=== PATIENT | male | born 1980 | race Caucasian/White ===

== ENCOUNTER 2019-07-30 20:06 | Emergency (ER) | payer BC, OTHER ==
[2019-07-30] MEDS ORDERED: Sodium Chloride 0.9% 1,000 ML IV ONE ×2 (20:24→21:33)
--- NOTE | 2019-07-30 20:25 | EDM.PDOC ---
ED HPI GENERAL MEDICAL PROBLEM - General Stated Complaint: IRREGULAR HEARTBEAT Time Seen by Provider: 07/30/19 20:10 - History of Present Illness INITIAL COMMENTS - FREE TEXT/NARRATIVE: developed iregular HR about 45 min before persentation states h was eating an icecream when i started . has hd Afib about one year ago ( dehdration from excessive alcohol intake , responded to fluids denies ches pain , bu has fluttering in the chest ., no DUNCAN fever chillls, dry cough noted since onset of symptoms . pt is on Cartia for HTN - Related Data Allergies Allergy/AdvReac Type Severity Reaction Status Date / Time azithromycin [From Zithromax] Allergy Rash Verified 01/05/18 17:06 Home Meds: Home Meds dilTIAZem HCl [Diltiazem 24Hr Cd] 120 mg PO DAILY #14 cap.er.24h 01/05/18 [Rx] Diltiazem [Cardizem CD] 240 mg PO DAILY #30 cap.er 07/30/19 [Rx] Enoxaparin Sodium [Lovenox] 100 mg SQ Q12HR #10 ml 07/30/19 [Rx] Past Medical History Cardiovascular History: Reports: Hypertension ED ROS GENERAL - Review of Systems Review Of Systems: See Below Constitutional: Reports: No Symptoms. Denies: Weakness, Fatigue HEENT: Reports: No Symptoms Respiratory: Reports: No Symptoms Cardiovascular: Reports: Palpitations. Denies: Chest Pain, Lightheadedness, PND , Syncope Endocrine: Reports: No Symptoms GI/Abdominal: Reports: No Symptoms Musculoskeletal: Reports: No Symptoms Skin: Reports: Other Neurological: Reports: No Symptoms Psychiatric: Reports: No Symptoms ED EXAM, GENERAL - Physical Exam Exam: See Below Exam Limited By: No Limitations General Appearance: Alert, WD/WN, No Apparent Distress Eye Exam: Bilateral Eye: EOMI Ears: Normal External Exam Nose: Normal Inspection Throat/Mouth: Normal Oropharynx Head: Atraumatic, Other Neck: Supple, Non-Tender Respiratory/Chest: No Respiratory Distress, Lungs Clear, Normal Breath Sounds Cardiovascular: Normal Peripheral Pulses, Irregularly Irregular GI/Abdominal: Soft, Non-Tender Extremities: Normal Inspection, Normal Range of Motion, Non-Tender, Normal Capillary Refill Neurological: Alert, Oriented, CN II-XII Intact Psychiatric: Normal Affect, Normal Mood Skin Exam: Warm, Dry Course - Vital Signs Last Recorded V/S: Last Vital Signs Temp 36.2 C 07/30/19 20:06 Pulse 101 H 07/30/19 20:06 Resp 18 07/30/19 20:06 BP 168/102 H 07/30/19 20:06 Pulse Ox 98 07/30/19 20:06 - Orders/Labs/Meds Orders: Active Orders 24 hr Category Date Time Status EKG Documentation Completion [RC] ASDIRECTED Care 07/30/19 20:24 Active Chest 1V Frontal [CR] Stat Exams 07/30/19 20:24 Taken EKG 12 Lead [EK] Routine Ther 07/30/19 20:23 Ordered Labs: Laboratory Tests 07/30/19 07/30/19 07/30/19 Range/Units 20:25 20:25 20:25 WBC 8.5 (4.5-12.0) X10-3/uL RBC 5.05 (4.30-5.75) x10(6)uL Hgb 17.1 (13.5-17.8) g/dL Hct 48.8 (30.0-51.3) % MCV 96.7 H (80-96) fL MCH 33.9 H (27.7-33.6) pg MCHC 35.1 (32.2-35.4) g/dL RDW 12.4 (11.5-15.5) % Plt Count 312 (125-369) X10(3)uL MPV 7.8 (7.4-10.4) fL Neut % (Auto) 64.0 (46-82) % Lymph % (Auto) 23.7 (13-37) % [place] % (Auto) 7.0 (4-12) % Eos % (Auto) 5 (1.0-5.0) % Baso % (Auto) 0 (0-2) % Neut # (Auto) 5.5 (1.6-8.3) # Lymph # (Auto) 2.0 (0.6-5.0) # [place] # (Auto) 0.6 (0.0-1.3) # Eos # (Auto) 0.4 (0.0-0.8) # Baso # (Auto) 0.0 (0.0-0.2) # Sodium 141 (135-145) mmol/L Potassium 3.5 (3.5-5.3) mmol/L Chloride 103 (100-110) mmol/L Carbon Dioxide 32 (21-32) mmol/L BUN 12 (7-18) mg/dL Creatinine 1.1 (0.70-1.30) mg/dL Est Cr Clr Drug Dosing TNP Estimated GFR (MDRD) > 60 (>60) BUN/Creatinine Ratio 10.9 (9-20) Glucose 127 H (80-116) mg/dL Calcium 8.9 (8.6-10.2) mg/dL Total Bilirubin 1.7 H (0.1-1.3) mg/dL AST 20 (5-25) IU/L ALT 40 H D (12-36) U/L Alkaline Phosphatase 78 (56-112) IU/L Troponin I 5.5 (4.0-60.3) pg/mL Total Protein 7.5 (6.0-8.0) g/dL Albumin 4.2 (3.5-5.2) g/dL Globulin 3.3 g/dL Albumin/Globulin Ratio 1.3 Meds: Medications Discontinued Medications Generic Name Dose Route Start Last Admin Trade Name Freq PRN Reason Stop Dose Admin Aspirin 325 mg 07/30/19 22:51 07/30/19 23:05 Ecotrin PO 07/30/19 22:52 325 mg ONETIME ONE Administration Diltiazem HCl 20 mg 07/30/19 21:32 07/30/19 22:03 Diltiazem IVPUSH 07/30/19 21:33 20 mg ONETIME ONE Administration Enoxaparin Sodium 100 mg 07/30/19 23:13 07/30/19 23:25 Lovenox SUBCUT 07/30/19 23:14 100 mg ONETIME ONE Administration Sodium Chloride 1,000 mls @ 999 mls/hr 07/30/19 20:24 07/30/19 20:45 Normal Saline IV 07/30/19 21:24 999 mls/hr .BOLUS ONE Administration Sodium Chloride 1,000 mls @ 999 mls/hr 07/30/19 21:33 07/30/19 21:40 Normal Saline IV 07/30/19 22:33 999 mls/hr .BOLUS ONE Administration - Re-Assessments/Exams Free Text/Narrative Re-Assessment/Exam: 07/30/19 23:26 pt with Afib Given bolus ivf 1liter , no significant reduction in heart rate , was given another bolus with Iv cardizem heart rate decreased to 60-70's but still in Afib has been asymptomatic BP is stable pt given aspirin and Lovenox Will get him scheduled to see PCP for referral to see [facility]er soles will see PCP tomorrow am in follow up Departure - Departure Time of Disposition: 11:35 Disposition: Home, Self-Care 01 Condition: Fair Clinical Impression: Paroxysmal atrial fibrillation Prescriptions: Enoxaparin Sodium [Lovenox] 100 mg SQ Q12HR #10 ml Diltiazem [Cardizem CD] 240 mg PO DAILY #30 cap.er Instructions: Aspirin and Your Heart Referrals: Lois Ashley NP [Primary Care Provider] - Additional Instructions: 1) See your PCP in am for further evaluation 2) increase dose of Cartia to 240mg daily 3) if HR > 100 or you develop other symptoms , return to ER 4) Increase fluid intake and avoid caffeinated beverages 5) Call with any concerns Sepsis Event Note - Focused Exam Vital Signs: Vital Signs Temp Pulse Resp BP Pulse Ox 07/30/19 20:06 36.2 C 101 H 18 168/102 H 98 Date Exam was Performed: 07/30/19 Time Exam was Performed: 23:36 - My Orders Last 24 Hours: My Active Orders 07/30/19 20:23 EKG 12 Lead [EK] Routine 07/30/19 20:24 EKG Documentation Completion [RC] ASDIRECTED Chest 1V Frontal [CR] Stat - Assessment/Plan Last 24 Hours: My Active Orders 07/30/19 20:23 EKG 12 Lead [EK] Routine 07/30/19 20:24 EKG Documentation Completion [RC] ASDIRECTED Chest 1V Frontal [CR] Stat
[2019-07-30] MEDS ORDERED: Diltiazem 25 MG/5 ML SDV IVPUSH ONE (21:32)
[2019-07-30] MEDS ORDERED: Aspirin 325 MG Tab.EC PO ONE (22:51)
[2019-07-30] MEDS ORDERED: Enoxaparin 100 MG/1 ML Syringe SUBCUT ONE (23:13)
--- NOTE | 2019-07-31 10:29 | CR ---
INDICATION: Arrhythmia. CHEST, 1 VIEW: AP upright view of the chest was obtained 07/30/19, compared with 01/05/18. The heart remains normal in size and shape. The aorta is minimally tortuous. Overlying EKG leads are noted. An active infiltrate or effusion was not identified. IMPRESSION: No acute process. MTDD
== END 2019-07-30 23:50 | disposition home or self-care (01) ==
LOC: FB.ED 20:06
DX: I48.0 Paroxysmal atrial fibrillation (principal); Z88.1 Allergy status to other antibiotic agents; I10 Essential (primary) hypertension; Z79.899 Other long term (current) drug therapy
CPT/HCPCS: 36415; 71045; 80053; 84484; 85025; 93005; 96372; 96374; 99285; A9270; J1650; J3490; J7030

== ENCOUNTER 2021-10-08 21:54 | Emergency (ER) | payer BC | END 2021-10-08 23:20 | disposition home or self-care (01) | LOC: FB.ED 21:54 | DX: S61.202A Unspecified open wound of right middle finger without damage to nail, initial encounter (principal); Z88.1 Allergy status to other antibiotic agents; W26.8XXA Contact with other sharp object(s), not elsewhere classified, initial encounter | CPT/HCPCS: 12001; 99283 ==